=== PATIENT | male | born 1970 | race Caucasian/White ===

== ENCOUNTER → 2017-08-10 | Outpatient (CLI) | payer BC ==
--- NOTE | 2017-08-10 11:55 | RAD ---
CT study of the abdomen and pelvis without contrast Clinical indications: Right flank pain with frequent urination for one week. TECHNIQUE: Noncontrast helical CT scanning of the abdomen and pelvis was performed. Without contrast, the sensitivity to detect organ pathology and GI tract pathology is decreased. PQRS compliance Statement One or more of the following individualized dose reduction techniques were utilized for this study: 1. Automated exposure control 2. Adjustment of the mA and/or kV according to patient size 3. Use of iterative reconstruction technique COMPARISON: None available. FINDINGS: The liver and spleen and pancreas and gallbladder are normal on this noncontrast study. No extra hepatic biliary ductal dilatation is seen. No adrenal mass is evident. No hydronephrosis or hydroureter or renal stone or ureteral stone is evident. No renal mass is seen on either side on this noncontrast study. No perinephric inflammatory change is seen. Urinary bladder is not abnormally distended. There is mild fecal retention throughout the colon. Moderate fecal retention is seen within the rectum. The rectum is distended up to 7.7 cm. No obstructive bowel pattern is evident. No free air or free fluid or mesenteric edema is seen. The appendix is not visualized and therefore may be surgically absent. If not, there are no CT findings of appendicitis. The prostate gland measures 4.9 cm in transverse dimension and therefore is not abnormally enlarged. No lung base consolidation is evident. No osteolytic process is seen. IMPRESSION: No acute abnormality of the abdomen or pelvis is evident. There is moderate fecal retention within the rectum. Electronically signed by: Brenton Lyons MD (08/10/2017 11:52 AM) [id number]
== END | disposition home or self-care (01) ==
LOC: CT 11:25
PROVIDERS: ATTEND Physician Assistant
DX: R35.0 Frequency of micturition (principal)
CPT/HCPCS: 74176

== ENCOUNTER 2018-03-09 02:15 | Emergency (ER) | payer OTHER, BC ==
[~2018-03-09] VITALS: Ht 188 cm; Wt 104.3 kg
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
[2018-03-09 02:27] VITALS: BP 131/74
[2018-03-09] MEDS ORDERED: ERYTHROMYCIN 0.5% OPHTH OINTMENT 1GM TUBE. OU ONE (02:30)
[2018-03-09] MEDS ORDERED: IBUPROFEN 600 MG TABLET. PO ONE (02:30)
[2018-03-09] MEDS ORDERED: FLUORESCEIN 1MG EYE STRIP. OU ONE (02:30)
[2018-03-09] MEDS ORDERED: CYCLOPENTOLATE 1% OPTH SOLUTION 2ML BOTTLE. OD ONE (02:30)
[2018-03-09] MEDS ORDERED: TETANUS AND DIPHTHERIA TOX/PF 0.5 ML VIAL. VAX IM ONE (02:30)
[2018-03-09] MEDS ORDERED: TETRACAINE 0.5% OPHTH SOLUTION 4ML BOTTLE. OU ONE (03:00)
== END 2018-03-09 02:55 | disposition home or self-care (01) ==
LOC: ER 02:15
DX: S05.01XA Injury of conjunctiva and corneal abrasion without foreign body, right eye, initial encounter (principal); W50.0XXA Accidental hit or strike by another person, initial encounter; Y93.89 Activity, other specified; Y92.89 Other specified places as the place of occurrence of the external cause; Y99.0 Civilian activity done for income or pay
CPT/HCPCS: 90471; 90714; 99284-25